=== PATIENT | female | born 1970 | race Caucasian/White ===

== ENCOUNTER → 2019-10-24 08:33 | Outpatient (BNVA) | payer BC, SELFPAY | PROVIDERS: Visit Provider Nurse Practitioner Family | DX: Z00.00 Encounter for general adult medical examination without abnormal findings (principal); L98.9 Disorder of the skin and subcutaneous tissue, unspecified; M25.511 Pain in right shoulder; G89.29 Other chronic pain; I10 Essential (primary) hypertension | CPT/HCPCS: 80061; 80323; 82947 ==

== ENCOUNTER 2019-11-22 09:14 | Outpatient (CLI) | payer BC, SELFPAY ==
--- NOTE | 2019-11-22 09:28 | MM_ITS ---
WS: [id number] BILATERAL DIGITAL SCREENING MAMMOGRAPHY WITH CAD CLINICAL INFORMATION: SCREENING HISTORY: Screening mammogram. No current complaints. COMPARISON: November 21, 2018 TECHNIQUE: Bilateral CC and MLO views. FINDINGS: The breasts are composed of heterogeneous fibroglandular density tissue, which can limit the detectio n of small underlying mass lesions. Stable punctate and clustered calcifications. No suspicious mass, asymmetry, calcifications, or architectural distortion. No evidence of malignancy. MM/[id number] IMPRESSION: BI-RADS: 2-Benign FOLLOW UP: 1 Year Follow-up Recommend return to annual screening mammography.
== END 2019-11-22 09:15 | disposition home or self-care (01) ==
LOC: RADSHAW 09:19
PROVIDERS: PCP Nurse Practitioner Family; Visit Provider Nurse Practitioner Family
DX: Z12.31 Encounter for screening mammogram for malignant neoplasm of breast (principal)
CPT/HCPCS: 77067

== ENCOUNTER → 2020-06-11 09:39 | Outpatient (BNVA) | payer BC, SELFPAY | PROVIDERS: PCP Nurse Practitioner Family; Visit Provider Obstetrics & Gynecology | DX: N93.9 Abnormal uterine and vaginal bleeding, unspecified (principal); Z12.4 Encounter for screening for malignant neoplasm of cervix | CPT/HCPCS: 84146; 84443; 85025; 88175 ==

== ENCOUNTER → 2020-06-18 14:54 | Outpatient (BNVA) | payer BC, SELFPAY | PROVIDERS: PCP Nurse Practitioner Family; Visit Provider Obstetrics & Gynecology | DX: N85.00 Endometrial hyperplasia, unspecified (principal); N83.202 Unspecified ovarian cyst, left side | CPT/HCPCS: 76830 ==

== ENCOUNTER → 2020-06-25 14:34 | Outpatient (BNVA) | payer BC, SELFPAY | PROVIDERS: PCP Nurse Practitioner Family; Visit Provider Obstetrics & Gynecology | DX: N93.9 Abnormal uterine and vaginal bleeding, unspecified (principal) | CPT/HCPCS: 81025 ==

== ENCOUNTER → 2020-07-25 11:22 | Outpatient (BNVA) | payer BC, SELFPAY | PROVIDERS: PCP Nurse Practitioner Family; Visit Provider Obstetrics & Gynecology | DX: Z11.59 Encounter for screening for other viral diseases (principal); N93.9 Abnormal uterine and vaginal bleeding, unspecified | CPT/HCPCS: 87635 ==

== ENCOUNTER 2020-07-31 08:07 | Day surgery (SDC) | payer BC, SELFPAY ==
[2020-07-29 11:52] VITALS: BMI 25.8
--- NOTE | 2020-07-29 12:08 | P.ANESASSM_ITS ---
Pre-Anesthetic Assessment Pre-Anesthetic Assessment: Height/Weight: Height 1.68 m Weight 72.575 kg Preop Diagnosis: abnormal uterine bleeding Proposed Procedure: Operation Date: 07/31/20 09:35 Proposed Procedures p Hysteroscopy 71590 N93.9(Not Applicable) - Licha Sarabia MD s Dilation And Curettage (D&C) 89581(Not Applicable) - Licha Sarabia MD Familial anesthetic complications: PONV Social: Social History: No alcohol and No tobacco Exam: Pre-Anes Outpt Exam: alert, oriented x 3, clear to auscultation bilaterally and regular rate & rhythm Airway: Cervical ROM: WNL MP: 4 Dentition: Full Pulmonary: Pulmonary: None reported CV/HEM: CV/HEM: HTN and Palp Comments: mitral valve prolapse on metoprolol for irregular beats - not a fib GI: GI: GERD Musc/skel: Musc/skel: Lower Back Pain and Scoliosis Neuropsych: Neuropsych: Seizure (30 years ago (2 episodes after she stopped control)) Anesthetic Plan: ASA status: 2 Anesthesia: MAC Risk of > 500 ml blood loss (7ml/kg in children): No PFSH Anesthesia PFSH: Medical History Hypertension Is on beta-blockers for palpitations which helps with hypertension per patient. She follows up with primary care provider and with her data management engineer Dr. Lyon in [place] home No pertinent past medical history Denies: diabetes, asthma, seizures, DVT/PE PCP: Andi Gillette Palpitations Reports having palpitations since about 2015 and is on beta-blockers managed by her data management engineer Dr. Lyon. Surgical History Hx of section (~10/1989) Family History Father Diabetes Mother Hypertension Hyperlipidemia Heart disease Sister Hypertension Grandmother Stroke maternal Family/Other Diabetes maternal great grandmother Heart disease maternal uncle Denies family history of Colon cancer Ovarian cancer Breast cancer Uterine cancer Thyroid condition Social History Smoking and tobacco status: former smoker Quit status (tobacco): has quit using tobacco Former quit date comment: quit age 16; smoked 1/2 PPD Second hand smoke exposure: Yes Alcohol intake: never Adopted: No Lives independently: Yes Household members: spouse Housing: House Marital status: service: No Current occupational status: employed Current occupation: supervisor real estate office at [employer] Current occupational exposures/hazards: No History of recent travel: No Current gender identity: Female Female Reproductive History: Date of last menstrual period: 06/02/20 Data Anesthesia Cardiac Studies: No Data to Display
[2020-07-31 08:31] VITALS: BP 136/76; PULSE 79; RESP 18; TEMP 36.6; O2SAT 99
--- NOTE | 2020-07-31 08:42 | P.ANESUD_ITS ---
Pre-Anesthetic Update Pre-Anesthetic Assessment: Date of Surgery/Procedure: 07/31/20 Preop Magaly gnosis: Endometrial polyp Proposed Procedure: Operation Date: 07/31/20 09:35 Proposed Procedures p Hysteroscopy 42557 N93.9(Not Applicable) - Licha Sarabia MD s Dilation And Curettage (D&C) 07696(Not Applicable) - Licha Sarabia MD Any changes to Pre-Anesthetic Assessment?: No Last Intake: Intake Last Liquid Date 07/30/20 Last Liquid Time 21:00 Last Solid Date 07/30/20 Last Solid Time 18:00 Vitals: Temperature 97.9 F 07/31/20 08:31 Temperature Source Temporal Artery S can 07/31/20 08:31 Pulse Rate 79 07/31/20 08:31 Pulse Rhythm 07/31/20 08:32 Pulse Strength 3+ Normal 07/31/20 08:32 Respiratory Rate 18 07/31/20 08:31 Blood Pressure 136/76 07/31/20 08:31 Blood Pressure Cynthia n 96 07/31/20 08:31 Pulse Oximetry 99 07/31/20 08:31 Oxygen Delivery Me thod 07/31/20 08:32 Exam: Pre-Anes Outpt Exam: alert, oriented x 3, clear to auscultation bilaterally and regular rate & rhythm Cardiac Studies: No Data to Display
[2020-07-31 08:49] LABS: OR HCG Qualitative Urine Negative (Negative)
[2020-07-31] MEDS: sodium chloride 0.9% 1,000 ML 30 ML IV (09:04)
[2020-07-31 09:06] LABS: Basophils # 0.1 10^3/uL (0.0-0.1); Basophils % 0.8 %; Eosinophils # 0.1 10^3/uL (0.0-0.8); Eosinophils % 1.3 %; Hemoglobin 14.6 g/dL (11.5-15.3); Lymphocytes # 1.1 10^3/uL (0.8-4.8); Lymphocytes % 17.6 %; Mean Corpuscular HGB Conc 33.2 g/dL (30.0-36.0); Mean Corpuscular Hemoglobin 32.3 pg (28.0-34.0); Mean Corpuscular Volume 97.3 fL (81-99); Mean Platelet Volume 10.8 fL (7.4-10.4); Monocytes # 0.4 10^3/uL (0.2-0.9); Monocytes % 6.3 %; Neutrophils # 4.61 10^3/uL (1.8-7.7); Neutrophils % 73.8 %; Nucleated Red Blood Cells % 0 %; Platelet Count 173 10^3/cmm (130-400); Red Blood Count 4.52 10^6/uL (4.1-5.3); Red Cell Distribution Width 11.7 % (12.1-15.1); White Blood Count 6.2 10^3/uL (4.0-10.0)
--- NOTE | 2020-07-31 10:44 | P.HPUD_ITS ---
Surgery/Procedure H&P Update DATE OF PROCEDURE: July 31, 2020 DATE H&P PERFORMED: 07/29/20 H&P UPDATE INFORMATION: I have reviewed H&P completed within last 30 days, I have examined patient prior to procedure, No changes to prior documentation and H&P is in [facility] [place] on date indicated PREOP DIAGNOSIS: Endometrial polyp PLANNED PROCEDURE: Operation Date: 07/31/20 09:35 Proposed Procedures p Hysteroscopy 61807 N93.9(Not Applicable) - Licha Sarabia MD s Dilation And Curettage (D&C) 75527(Not Applicable) - Licha Sarabia MD
--- NOTE | 2020-07-31 10:44 | W.PM.OPSUD ---
Surgery/Procedure H&P Update DATE OF PROCEDURE: July 31, 2020 DATE H&P PERFORMED: 07/29/20 H&P UPDATE INFORMATION: I have reviewed H&P completed within last 30 days, I have examined patient prior to procedure, No changes to prior documentation and [place] is [place] [facility] indicated PREOP DIAGNOSIS: Endometrial polyp PLANNED PROCEDURE: Operation Date: 07/31/20 09:35 Proposed Procedures p Hysteroscopy 74855 N93.9(Not Applicable) - Licha Sarabia MD s Dilation And Curettage (D&C) 10531(Not Applicable) - Licha Sarabia MD
[2020-07-31 11:25] VITALS: BP 102/63; PULSE 65; RESP 18; TEMP 36.5; O2SAT 97
--- NOTE | 2020-07-31 11:29 | P.OP_ITS ---
Operative Report Date of procedure: July 31, 2020 OPERATIVE REPORT Date of surgery: 07/31/2020 Date of dictation: 07/31/2020 Preoperative diagnosis: Thickened endometrium, sessile endometrial polyps, abnormal uterine bleeding Postoperative diagnosis/findings: Same, normal ostia bilaterally, thickened endometrial tissue with sessile polyps identified. Grade 1 through 2 uterine prolapse, grade 0-1 cystocele and rectocele. Procedure done: Hysteroscopy, D&C, polypectomy Specimens removed/disposition of specimens: Endometrial tissue sent to pathology Surgeon: Dr. Licha Pineda Superintendent Compressor Stations: Jes Anesthesia: MAC Estimated blood loss:20 ml Intravenous fluids: 400 mL Urine output: 30 mL of clear urine via straight catheter prior to surgery Medications: As per anesthesia records Complications: None, patient was taken to the recovery room in a stable condition PROCEDURE: After consent was obtained patient was taken to the operating room where she is placed under laryngeal mask anesthesia without any difficulty. She was placed supine on the table in lithotomy position. Care was taken to ensure that her legs were well positioned to avoid pressure points. She was then prepped and draped in the usual sterile fashion. Exam under anesthesia was done at this time which showed a 8-week size midposition uterus. The weighted speculum and lateral vaginal wall retractors were placed in the vagina and the cervix was visualized. The cervix appeared normal. The cervix was dilated to a 15 Grijalva dilator. This allowed placement of a 3 mm hysteroscope into the uterine cavity without any difficulty. Once the hysteroscope was placed in the uterine cavity, the endocervical canal was visualized and appeared normal. The endometrium was then visualized and it appeared irregular with multiple sessile polyps and thickened tissue. The hysteroscope was removed and a sharp curette was used to curette the endometrium.The endometrial curettings were sent to pathology . No active bleeding was noted from the cervix. The hysteroscope was placed and again and most of the thickened irregular sessile polyps had been removed. The hysteroscope was withdrawn and sharp curetting was done 1 more time with minimal tissue return. Tenaculum was removed and good hemostasis was noted to the site of tenaculum. Good hemostasis was achieved. All instruments were removed from the vagina. Patient was cleaned well and anesthesia was reversed without any difficulty. She was taken to the recovery in a stable condition. FOLLOW UP: Follow-up in 2 weeks and 6 weeks with surgeon MEDICATION ON DISCHARGE: Colace 100 mg by mouth every 12 hours when necessary constipation, 30 tablets, no refills Ibuprofen 800 mg by mouth every 8 hours when necessary pain, 60 tablets, no refills. Continue other home medication DISPOSITION: Home in a stable condition Pre-op Diagnosis: Endometrial polyp
--- NOTE | 2020-07-31 11:47 | ANE.PACU2 ---
Inpatient post-anesthesia follow up: Airway intact: Yes Vital signs: Temperature 97.7 F Pulse Rate 65 Respiratory Rate 65 Blood Pressure 102/63 Pulse Oximetry 97 Oxygen Delivery Me thod Room Air Oxygen Flow Rate Fraction of Inspir ed Oxygen Hydration adequate: Yes Nausea and vomiting: No Pain level: 1 Mental status: Baseline
[2020-07-31 11:51] VITALS: BP 114/74; PULSE 58; RESP 18; O2SAT 100
== END 2020-07-31 12:05 | disposition home or self-care (01) ==
PROVIDERS: PCP Nurse Practitioner Family; Visit Provider Obstetrics & Gynecology
PROC: 0UJD8ZZ Inspection of Uterus and Cervix, Via Natural or Artificial Opening Endoscopic (ICD-10-PCS; CPT 58555; principal; 2020-07-31 09:35)
PROC: (CPT 58120; 2020-07-31 09:35)
DX: N84.0 Polyp of corpus uteri (principal); N93.9 Abnormal uterine and vaginal bleeding, unspecified; I10 Essential (primary) hypertension; K21.9 Gastro-esophageal reflux disease without esophagitis; Z87.891 Personal history of nicotine dependence
CPT/HCPCS: 58558; 12345; 36415; 81025; 84703; 85025; 88305; J2250; J2704; J3010; J7030

== ENCOUNTER → 2021-05-12 18:00 | Outpatient (BNVA) | payer BC, SELFPAY | PROVIDERS: PCP Nurse Practitioner Family; Visit Provider Nurse Practitioner Family | DX: Z20.822 Contact with and (suspected) exposure to COVID-19 (principal) | CPT/HCPCS: 87635 ==

== ENCOUNTER → 2021-06-03 10:10 | Outpatient (BNVA) | payer BC, SELFPAY | PROVIDERS: PCP Nurse Practitioner Family; Visit Provider Nurse Practitioner Family | DX: Z00.00 Encounter for general adult medical examination without abnormal findings (principal); Z13.6 Encounter for screening for cardiovascular disorders; R00.2 Palpitations; I10 Essential (primary) hypertension | CPT/HCPCS: 80053; 80061; 80323; 85025 ==

== ENCOUNTER 2021-06-29 12:52 | Outpatient (CLI) | payer BC, SELFPAY ==
--- NOTE | 2021-06-29 13:04 | MM_ITS ---
WS: [id number] BILATERAL SCREENING DIGITAL MAMMOGRAM WITH CAD HISTORY: SCREENING COMPARISON: 11/22/2019 and 11/21/2018 Bilateral CC and MLO views submitted. Computer aided detection analyzed. Breast composition: There are scattered areas of fibroglandular density. No suspicious masses, microc alcifications or architectural distortion. Scattered calcifications within each breast. MM/[place] [id number] IMPRESSION: BI-RADS: 2-Benign FOLLOW UP: 1 Year Follow-up
== END 2021-06-29 12:53 | disposition home or self-care (01) ==
LOC: RADSHAW 12:57
PROVIDERS: PCP Nurse Practitioner Family; Visit Provider Obstetrics & Gynecology
DX: Z12.31 Encounter for screening mammogram for malignant neoplasm of breast (principal)
CPT/HCPCS: 77067

== ENCOUNTER → 2021-11-05 15:00 | Outpatient (BNVA) | payer BC, SELFPAY | PROVIDERS: PCP Nurse Practitioner Family; Visit Provider Nurse Practitioner Family | DX: R10.11 Right upper quadrant pain (principal) | CPT/HCPCS: 80053; 85025 ==

== ENCOUNTER 2021-12-02 10:37 | Outpatient (CLI) | payer BC, SELFPAY ==
--- NOTE | 2021-12-02 11:00 | US_ITS ---
WS: [id number] RIGHT UPPER QUADRANT ULTRASOUND HISTORY: R10.11 - Right upper quadrant pain COMPARISON: 03/23/2016 Liver: 15.9 cm in length. Normal size liver. No bile duct dilatation or mass. Portal Vein: Normal hepatopetal flow with monophasic waveform. Gallbladder: Normally distended gallbladder with no stones or wall thickening. CBD: 0.4 cm Pancreas: Partially obscured by body habitus and gas. Visualized pancreas is normal. Right kidney: 12.2 cm in length. There is a large cyst from the upper pole measuring 6.7 x 6.5 x 8.0 cm. Cyst has slightly increased in size since the prior examination. No hydronephrosis. Aorta and IVC: Unremarkable abdominal aorta and IVC. No ascites. US/US gall bladder [id number] IMPRESSION: 1. Normal gallbladder. 2. Large RIGHT renal cyst, cyst upper pole. Slight progression in size since .
== END 2021-12-02 10:38 | disposition home or self-care (01) ==
PROVIDERS: PCP Nurse Practitioner Family; Visit Provider Nurse Practitioner Family
DX: R10.11 Right upper quadrant pain (principal); N28.1 Cyst of kidney, acquired
CPT/HCPCS: 76705

== ENCOUNTER 2022-01-08 07:39 | Outpatient (CLI) | payer BC, SELFPAY ==
--- NOTE | 2022-01-08 08:00 | NM_ITS ---
WS: [id number] NUCLEAR MEDICINE HIDA SCAN CLINICAL INFORMATION: R10.11 - Right upper quadrant pain TECHNIQUE: Following intravenous administration of 7.4 mCi of technetium 99m mebrofenin, images of th e abdomen were obtained over the course of 60 minutes. Next, gallbladder ejection fraction was determ ined by obtaining preprandial and one-hour postprandial images of the gallbladder following oral garrett stion of Ensure. COMPARISON: Ultrasound December 02, 2021 FINDINGS: Normal hepatic uptake at 5 minutes. Normal hepatic excretion. Gallbladder is visualized by 15 minutes . No evidence of acute cholecystitis. Normal common bile duct and small bowel activity. Gallbladder ejection fraction 91% within normal limits. No evidence of chronic cholecystitis. NM/NM hepatobiliary w phar* [id number] IMPRESSION: 1. No evidence of acute or chronic cholecystitis. 2. Gallbladder ejection fraction 91% within normal limits.
== END 2022-01-08 07:40 | disposition home or self-care (01) ==
LOC: RAD 07:42
PROVIDERS: PCP Nurse Practitioner Family; Visit Provider Surgery
DX: R10.11 Right upper quadrant pain (principal)
CPT/HCPCS: 78227; A9537

== ENCOUNTER 2022-01-13 08:26 | Day surgery (SDC) | payer BC, SELFPAY ==
[2022-01-11 14:20] VITALS: BMI 25.8
[2022-01-13 09:05] VITALS: BP 122/75; PULSE 75; RESP 17; TEMP 37.3; O2SAT 100
[2022-01-13] MEDS: sodium chloride 0.9% 1,000 ML 30 ML IV (09:13)
--- NOTE | 2022-01-13 09:14 | P.HP_ITS ---
Same Day Surgery H&P Indication for Procedure/HPI DATE OF PROCEDURE: January 13, 2022 CHIEF COMPLAINT/INDICATIONFOR SURGICAL PROCEDURE: colonoscopy/egd PREOP DIAGNOSIS: upper gi symptoms PLANNED PROCEDURE: Operation Date: 01/13/22 10:00 Proposed Procedures p EGD 53740/88744/r10.11(Not Applicable) - Chuck Grady MD s Colonoscopy(Not Applicable) - Chuck Grady MD Medications/Allergies* Home Medications Medication Instructions Recorded Confirmed Type multivitamin (Daily Multi-Vitamin) 1 tab PO QAM 10/24/19 01/11/22 History ibuprofen 800 mg tablet 800 mg PO Q8H PRN tab 08/18/20 01/11/22 History Allergies/Adverse Reactions Allergy/AdvReac Type Severity Reaction Status Date / Time codeine AdvReac Intermediate heart races Verified 11/30/21 10:48 Current Medications: Generic Name Dose Route Start Last Admin Trade Name Freq PRN Reason Stop Dose Admin Sodium Chloride 1,000 mls @ 30 mls/hr 01/13/22 09:00 01/13/22 09:13 Sodium Chloride 0.9% IV 01/14/22 08:59 30 mls/hr .Q24H JOSAFAT Administration Pertinent History/Comorbid Conditions* Medical History (Updated 12/10/21 @ 16:46 by YEE Kenney) COVID-19 Hypertension Is on beta-blockers for palpitations which helps with hypertension per patient. She follows up with primary care provider and with her electron beam photo mask maker Dr. Lyon in [place] Mitral valve prolapse Palpitations Reports having palpitations since about 2016 and is on beta-blockers managed by her electron beam photo mask maker Dr. Lyon. Surgical History (Updated 08/22/20 @ 07:59 by Licha Sarabia MD) Hx of section (~10/1989) Status post hysteroscopy 07/31/2020---hysteroscopy, polypectomy, D&C performed by Dr. Pineda at [facility] for abnormal uterine bleeding and endometrial polyp. On hysteroscopy multiple sessile polyps with thickened endometrium identified, bilateral ostia visualized. Pathology showed disordered proliferation without atypia or malignancy . Family History (Updated 06/11/20 @ 09:01 by Beronica Magallon, JEAN) Father Diabetes Father Family/Other maternal great grandmother Heart disease Mother Family/Other maternal uncle Hyperlipidemia Mother Hypertension Mother Sister Stroke Grandmother maternal Denies family history of Colon cancer Ovarian cancer Breast cancer Uterine cancer Thyroid condition Social History Smoking and tobacco status: former smoker Second hand smoke exposure: Yes Alcohol intake: never Caregiver/support person: Yes Lives independently: Yes Household members: spouse Marital status: service: No Current occupational status: employed Current occupation: [employer] History of recent travel: No Current gender identity: Female Special saran needs: No Agree to transfusion: Yes Pertinent Exam Findings alert, oriented x 3 and regular rate & rhythm Recommendations Surgery/Procedure today Coding Level of Care Code Acute Screener And Blender Operator for Jacobo Gambino
--- NOTE | 2022-01-13 09:29 | ANES.PREANE2 ---
Pre-Anesthetic Assessment Height/Weight: Height 1.68 m Weight 72.575 kg Temp Pulse Resp BP Pulse Ox 99.1 F 75 17 122/75 100 01/13/22 09:05 01/13/22 09:05 01/13/22 09:05 01/13/22 09:05 01/13/22 09:05 Preop Diagnosis: upper gi symptoms Operation Date: 01/13/22 10:00 Proposed Procedures p EGD 69297/35010/r10.11(Not Applicable) - Chuck Grady MD s Colonoscopy(Not Applicable) - Chuck Grady MD Familial anesthetic complications: Hx of PONV Was Beta Niranjan taken within 24 hours: Yes Was Clonidine taken within 24 hours: N/A Last intake: Intake Last Liquid Date 01/12/22 Last Liquid Time 20:00 Last Solid Date 01/11/22 Last Solid Time 19:00 Social No alcohol and No tobacco Exam alert, oriented x 3, clear to auscultation bilaterally and regular rate & rhythm Airway Submandibular: within normal limits Cervical ROM: within normal limits Mallampati: Class II Dentition: full Pulmonary None reported CV/HEM Hypertension and Murmur (MVP) Palpitations METS > 4 Renal cyst hx AUB Hepatic None reported GI Gastroesophageal Reflux Disease Symptomatic reflux on empty stomach Metabolic None reported Musc/skel Chronic right shoulder pain Neuropsych None reported Anesthetic Plan ASA status: 2 Anesthesia: Anesthesia Evaluation and General Other: I discussed with the patient risks, goals, and benefits of MAC and general anesthesia. We discussed spectrum of MAC anesthesia including conversion to general as well as possibility of recall of intraoperative stimuli including discomfort/pain. Patient agrees to proceed with MAC. Risk of > 500 ml blood loss (7ml/kg in children): No Medications/Allergies Home Medications Medication Instructions Recorded Confirmed Last Taken Type multivitamin (Daily Multi-Vitamin) 1 tab PO QAM 10/24/19 01/13/22 07/30/20 History ibuprofen 800 mg tablet 800 mg PO Q8H PRN tab 08/18/20 01/13/22 01/11/22 History metoprolol succinate 100 mg 100 mg PO QDAY #90 tab 06/03/21 01/13/22 01/13/22 06:30 Rx tablet,extended release 24 hr pantoprazole 40 mg tablet,delayed 40 mg PO DAILY #30 tab 11/30/21 01/13/22 01/12/22 Rx release (Protonix) Allergies Allergy/AdvReac Type Severity Reaction Status Date / Time codeine AdvReac Intermediate heart races Verified 01/13/22 09:16 Current Medications Generic Name Dose Route Start Last Admin Trade Name Whit PRN Reason Stop Dose Admin Sodium Chloride 1,000 mls @ 30 mls/hr 01/13/22 09:00 01/13/22 09:13 Sodium Chloride 0.9% IV 01/14/22 08:59 30 mls/hr .Q24H JOSAFAT Administration PFSH Anesthesia Medical History COVID-19 Hypertension Is on beta-blockers for palpitations which helps with hypertension per patient. She follows up with primary care provider and with her investment broker Dr. Lyon in [place] Mitral valve prolapse Palpitations Reports having palpitations since about 2015 and is on beta-blockers managed by her investment broker Dr. Lyon. Surgical History Hx of section (~10/1989) Status post hysteroscopy 07/31/2020---hysteroscopy, polypectomy, D&C performed [place] Dr. Pineda [place] [facility] [place] for abnormal uterine bleeding and endometrial polyp. On hysteroscopy multiple sessile polyps with thickened endometrium identified, bilateral ostia visualized. Pathology showed disordered proliferation without atypia or malignancy . Family History Father Diabetes Mother Hypertension Hyperlipidemia Heart disease Sister Hypertension Grandmother Stroke maternal Family/Other Diabetes maternal great grandmother Heart disease maternal uncle Denies family history of Colon cancer Ovarian cancer Breast cancer Uterine cancer Thyroid condition Social History Smoking and tobacco status: former smoker Second hand smoke exposure: Yes Alcohol intake: never Caregiver/support person: Yes Lives independently: Yes Household members: spouse Marital status: service: No Current occupational status: employed Current occupation: [employer] History of recent travel: No Current gender identity: Female Special saran needs: No Agree to transfusion: Yes Female Reproductive History Date of last menstrual period: 06/02/20 Data Anesthesia Cardiac Studies: No Data to Display
[2022-01-13 10:07] VITALS: BP 143/65; PULSE 74; RESP 18; TEMP 36.2; O2SAT 98
[2022-01-13 10:16] VITALS: BP 138/74; PULSE 76; RESP 18; TEMP 36.6; O2SAT 97
--- NOTE | 2022-01-13 17:42 | ANE.PACU2 ---
Inpatient post-anesthesia follow up: Airway intact: Yes Vital signs: Temperature 98 F Pulse Rate 76 Respiratory Rate 18 Blood Pressure 138/74 Pulse Oximetry 97 Oxygen Delivery Me thod Room Air Oxygen Flow Rate Fraction of Inspir ed Oxygen Hydration adequate: Yes Nausea and vomiting: No Pain level: 1 Mental status: Baseline
== END 2022-01-13 10:43 | disposition home or self-care (01) ==
PROVIDERS: PCP Nurse Practitioner Family; Visit Provider Surgery
PROC: 0DJ08ZZ Inspection of Upper Intestinal Tract, Via Natural or Artificial Opening Endoscopic (ICD-10-PCS; CPT 43235; principal; 2022-01-13 10:00)
PROC: 0DJD8ZZ Inspection of Lower Intestinal Tract, Via Natural or Artificial Opening Endoscopic (ICD-10-PCS; CPT 45378; 2022-01-13 10:00)
DX: R10.11 Right upper quadrant pain (principal); K44.9 Diaphragmatic hernia without obstruction or gangrene; K29.70 Gastritis, unspecified, without bleeding; I10 Essential (primary) hypertension; K21.9 Gastro-esophageal reflux disease without esophagitis; Z86.16 Personal history of COVID-19; Z82.49 Family history of ischemic heart disease and other diseases of the circulatory system; Z83.3 Family history of diabetes mellitus; Z82.3 Family history of stroke; Z87.891 Personal history of nicotine dependence
CPT/HCPCS: 43239; 45378; 88305; 88342; J2704; J7030

== ENCOUNTER 2022-06-10 11:12 | Outpatient (CLI) | payer BC, SELFPAY ==
--- NOTE | 2022-06-10 11:27 | US_ITS ---
WS: [id number] Bilateral renal ultrasound, 06/10/2022 Clinical Data: RECHECK RENAL CYST Comparison: None. Findings: The right kidney measures 13.5 cm x 9.4 cm x 5.9 cm and the left kidney is 9.9 cm x 4.9 cm x 5.0 cm. There is a cyst measuring 6.74 x 8.34 x 9.25 cm in the right kidney which is larger than was noted be fore. There are no masses or hydronephrosis. The renal cortical margin is normal. No renal calculi ar e seen. The abdominal aorta and inferior vena cava show no vascular abnormalities. The bladder was scanned and was not remarkable. US/US renal BI* [id number] Impression: 1. Large right renal cyst which has increased slightly in size. 2. Negative left kidney.
== END 2022-06-10 11:13 | disposition home or self-care (01) ==
PROVIDERS: PCP Nurse Practitioner Family; Visit Provider Nurse Practitioner Family
DX: N20.0 Calculus of kidney (principal)
CPT/HCPCS: 76770

== ENCOUNTER → 2022-06-24 11:58 | Outpatient (BNVA) | payer BC, SELFPAY | PROVIDERS: PCP Nurse Practitioner Family; Visit Provider Nurse Practitioner Family | DX: I10 Essential (primary) hypertension (principal); N93.9 Abnormal uterine and vaginal bleeding, unspecified; Z00.00 Encounter for general adult medical examination without abnormal findings; R00.2 Palpitations; N28.1 Cyst of kidney, acquired | CPT/HCPCS: 80053; 80061; 83001; 83735; 84443; 85025 ==

== ENCOUNTER 2022-07-14 10:58 | Outpatient (CLI) | payer BC, SELFPAY ==
--- NOTE | 2022-07-14 11:37 | MM_ITS ---
WS: [id number] BILATERAL SCREENING DIGITAL TOMOSYNTHESIS MAMMOGRAM WITH CAD HISTORY: SCREEN COMPARISON: 06/29/2021 and 11/22/2019 Bilateral CC and MLO views with tomosynthesis and synthetic mammography submitted. Computer aided det ection analyzed. Breast composition: There are scattered areas of fibroglandular density. No suspicious masses, microc alcifications or architectural distortion. Benign calcifications in each breast. MM/[place] [id number] IMPRESSION: BI-RADS: 2-Benign FOLLOW UP: 1 Year Follow-up
== END 2022-07-14 10:59 | disposition home or self-care (01) ==
LOC: RAD 11:00
PROVIDERS: PCP Nurse Practitioner Family; Visit Provider Nurse Practitioner Family
DX: Z12.31 Encounter for screening mammogram for malignant neoplasm of breast (principal)
CPT/HCPCS: 77063; 77067

== ENCOUNTER → 2023-06-29 13:03 | Outpatient (BNVA) | payer BC, SELFPAY | PROVIDERS: PCP Nurse Practitioner Family; Visit Provider Nurse Practitioner Family | DX: I10 Essential (primary) hypertension (principal) | CPT/HCPCS: 80053; 80061; 84443; 84550; 85025 ==

== ENCOUNTER → 2023-07-27 08:21 | Outpatient (BNVA) | payer BC, SELFPAY | PROVIDERS: PCP Nurse Practitioner Family; Visit Provider Nurse Practitioner Family | DX: M25.50 Pain in unspecified joint (principal) | CPT/HCPCS: 80048; 84550; 85651; 86038; 86140; 86200; 86431 ==

== ENCOUNTER 2023-09-22 13:19 | Outpatient (CLI) | payer BC, SELFPAY ==
--- NOTE | 2023-09-22 13:30 | MM_ITS ---
WS: [id number] BILATERAL 3D TOMOSYNTHESIS DIGITAL SCREENING MAMMOGRAPHY WITH CAD CLINICAL INFORMATION: SCREENING HISTORY: Screening mammogram. No current complaints. COMPARISON: 2021 TECHNIQUE: Bilateral CC and MLO views. FINDINGS: Scattered fibroglandular densities bilaterally. No suspicious focal mass, asymmetry, calcifications, or architectural distortion. No evidence of malignancy. Incidental punctate and clustered calcificati ons. IMPRESSION: MM/[place] [id number] BI-RADS: 2-Benign FOLLOW UP: 1 Year Follow-up Recommend return to annual screening mammography.
== END 2023-09-22 13:20 | disposition home or self-care (01) ==
LOC: MOBLMAM 13:24
PROVIDERS: PCP Nurse Practitioner Family; Visit Provider Nurse Practitioner Family
DX: Z12.31 Encounter for screening mammogram for malignant neoplasm of breast (principal)
CPT/HCPCS: 77063; 77067

== ENCOUNTER → 2024-10-10 11:54 | Outpatient (BNVA) | payer BC, SELFPAY | PROVIDERS: PCP Nurse Practitioner Family; Visit Provider Nurse Practitioner Family | DX: I10 Essential (primary) hypertension (principal) | CPT/HCPCS: 80053; 80061; 82607; 83735; 84443; 84550; 85025 ==

== ENCOUNTER 2024-10-30 09:39 | Outpatient (CLI) | payer BC, SELFPAY ==
--- NOTE | 2024-10-30 09:40 | MM_ITS ---
WS: [id number] Bilateral screening 3D tomosynthesis digital mammogram, 10/30/2024 9:46 AM Clinical Data: SCREENING Comparison: 09/22/2023, 07/14/2022, 06/29/2021, 11/22/2019, 11/21/2018, 10/05/2016, 03/23/2016, 09/08/2015, 08/13/2015, 10/02/2013, 09/27/2012. Findings: No spiculated masses or clustered calcifications are seen. There are no secondary signs of carcinoma. MM/MM scr BI tomosynthesis [id number] Impression: Negative bilateral mammogram unchanged. Recommend annual screening mammograms. BIRADS: 1 - Negative. FOLLOW UP: 1 Year Follow-up DENSITY: There are scattered areas of fibroglandular density. The CAD installment account checker was used
== END 2024-10-30 09:40 | disposition home or self-care (01) ==
PROVIDERS: PCP Nurse Practitioner Family; Visit Provider Nurse Practitioner Family
DX: Z12.31 Encounter for screening mammogram for malignant neoplasm of breast (principal); R92.323 Mammographic fibroglandular density, bilateral breasts
CPT/HCPCS: 77063; 77067